=== PATIENT | female | born 1985 | race Caucasian/White ===

== ENCOUNTER 2018-08-09 18:27 | Emergency (ER) | payer MEDICARE ==
[~2018-08-09] VITALS: Ht 154.9 cm; Wt 73.5 kg
[~2018-08-09 18:27] MED LIST: GABAPENTIN 100100 MG; HYDROCODONE-AP1 EAC6 PO; MACROBID 100 M100 M1 PO; NORCO 5-325 TA1 EAC1 PO; PHENERGAN 25 MG25 MG PO; PREDNISONE 20 M20 M1 PO; PROAIR HFA8.5 GM INH; PROMETHAZINE D480 ML PO; ZOFRAN ODT4 MG PO; ZOFRAN4 MG PO; ZOLOFT50 MG; ZPAK PO
[2018-08-09] MEDS ORDERED: PREDNISONE 10 M10 MG PO (18:43)
[2018-08-09 19:13] LABS: ABSOLUTE BASOPHILS 0.1 thou/uL (0.0-0.2); ABSOLUTE LYMPHOCYTES 2.2 thou/uL (0.8-5.3); ABSOLUTE MONOCYTES 0.9 thou/uL (0.0-1.2); ABSOLUTE NEUTROPHILS 6.5 thou/uL (1.6-8.1); BASOPHILS 0.7 %; EOSINOPHILS 0.3 %; HEMATOCRIT 38.8 % (37.0-47.0); LYMPHOCYTES 22.5 %; MCH 30.1 pg (26.0-34.0); MCHC 33.4 g/dL (28.0-37.0); NUCLEATED RBCS 0 /100WBC; PLATELET COUNT* 407 thou/uL (150-400); POLYS 67.5 %; RBC 4.31 mil/uL (4.20-5.00); RDW-CV 14.1 % (10.5-14.5); WBC 9.7 thou/uL (4.0-11.0)
[2018-08-09 19:22] LABS: CALCIUM 8.9 mg/dL (8.5-10.1); CREATININE 0.7 mg/dL (0.6-1.3)
[2018-08-09 19:28] LABS: ALBUMIN 3.7 g/dL (3.4-5.0); TOTAL BILIRUBIN 0.8 mg/dL (<0.1-1.0); TOTAL PROTEIN 7.2 g/dL (6.4-8.2)
[2018-08-09 19:38] LABS: INFLUENZA A ANTIGEN None Detected (None Detect); INFLUENZA B ANTIGEN None Detected (None Detect)
[2018-08-09 20:26] VITALS: BP 126/90
== END 2018-08-09 20:29 | disposition home or self-care (01) ==
LOC: M.ERS 18:27
PROVIDERS: Physician Assistant
DX: R05 Cough (principal); J44.9 Chronic obstructive pulmonary disease, unspecified; Z91.018 Allergy to other foods